=== PATIENT | male | born 1995 | race Caucasian/White ===

== ENCOUNTER 2017-07-23 09:30 | Day surgery (SDC) | payer OTHER ==
[2017-07-23] MEDS ORDERED: hydrALAzine 20 MG INJ IV (12:30)
[2017-07-23] MEDS ORDERED: HYDROmorphONE (0.2 MG/ML) 10ML SYG IV ×2 (12:30)
[2017-07-23] MEDS ORDERED: LABETALOL HCL 20MG INJ IV (12:30)
[2017-07-23] MEDS ORDERED: PROPOFOL 20 ML ×2 (12:43→12:55)
[2017-07-23] MEDS ORDERED: MIDAZOLAM 1 MG/ML 2 ML INJ (12:43)
[2017-07-23] MEDS ORDERED: METOCLOPRAMIDE 10 MG INJ (12:43)
[2017-07-23] MEDS ORDERED: CEFAZOLIN 1 GM INJ (12:44)
[2017-07-23] MEDS ORDERED: ONDANSETRON 4 MG INJ (12:45)
[2017-07-23] MEDS ORDERED: FENTAnyl 50 MCG/ML VIAL (12:50)
[2017-07-23] MEDS: BUPIVACAINE 0.25% (MPF) 30 ML INJ (13:03)
[2017-07-23] MEDS ORDERED: KETOROLAC 30 MG INJ (13:19)
[2017-07-23] MEDS ORDERED: IBUPROFEN 800 MG TAB PO (13:30)
== END 2017-07-23 15:30 | disposition home or self-care (01) ==
LOC: SDS 09:30
DX: L72.0 Epidermal cyst (principal)
CPT/HCPCS: 14001; 88307